=== PATIENT | male | born 1990 | race African-American/Black ===

== ENCOUNTER 2022-11-09 14:18 | Emergency (ER) | payer OTHER ==
[~2022-11-09] VITALS: Ht 167.6 cm; Wt 64.4 kg
[2022-11-09] MEDS ORDERED: TERBINAFINE HC250 MG PO (16:15)
[2022-11-09] MEDS ORDERED: ANTIFUNGAL30 G1 TOP (16:15)
== END 2022-11-09 17:06 | disposition home or self-care (01) ==
LOC: ER 14:18
DX: B35.3 Tinea pedis (principal)

== ENCOUNTER 2023-04-18 14:12 | Outpatient (CLI) | payer OTHER ==
[~2023-04-18 14:12] MED LIST: ANTIFUNGAL30 G1 TOP; TERBINAFINE HC250 MG PO
== END 2023-04-19 10:22 | disposition home or self-care (01) ==
LOC: MRI 14:12
PROVIDERS: ATTEND Family Medicine
DX: M23.611 Other spontaneous disruption of anterior cruciate ligament of right knee (principal); M23.51 Chronic instability of knee, right knee; M25.551 Pain in right hip; M16.31 Unilateral osteoarthritis resulting from hip dysplasia, right hip
CPT/HCPCS: 72195; 73718